=== PATIENT | male | born 1980 | race Caucasian/White ===

== ENCOUNTER 2017-01-18 06:52 | Day surgery (SDC) | payer OTHER ==
[2017-01-18 07:21] VITALS: BMI 31.6
[2017-01-18] MEDS ORDERED: Lactated Ringer's 500 ML IV ONE (08:48)
--- NOTE | 2017-01-18 08:53 | CP.SDSHP ---
Same Day Surgery H & P - History Proposed Procedure: egd Pre-Op Diagnosis: epigastric pain. heartburn - Previous Medical/Surgical History Neuro: Backaches Misc: Other (gastritis, ) Previous Surgical History: Back surgery (?) - Allergies Allergies: Allergies No Known Allergies Allergy (Verified 01/18/17 07:18) - Physical Exam Vital Signs: Vital Signs 01/18/17 07:21 Temperature 97.1 F L Pulse Rate 70 Respiratory 18 Rate Blood Pressure 139/90 O2 Sat by Pulse 98 Oximetry Mental Status: Alert & Oriented x3 Neuro: WNL Heart: WNL Lungs: WNL GI: WNL - Impression Impression: heartburn. epigastric pain Pt. Evaluated Today:Candidate for Anesthesia & Procedure: Yes - Date & Time Date: 01/18/17 Time: 08:52 Short Stay Discharge - Short Stay Discharge Admitting Diagnosis/Reason for Visit: EPIGASTRIC PAIN Disposition: HOME/ ROUTINE
[2017-01-18 08:58] VITALS: O2SAT 100
[2017-01-18] MEDS ORDERED: Pantoprazole 40 mg EC Tab PO ONE (09:15)
[2017-01-18 09:26] VITALS: TEMP 98.9
[2017-01-18 10:13] VITALS: BP 116/72; PULSE 77; RESP 15
== END 2017-01-18 10:10 | disposition home or self-care (01) ==
LOC: C.ENDO 06:52
PROVIDERS: ATTEND Internal Medicine Gastroenterology
DX: K29.70 Gastritis, unspecified, without bleeding (principal); R10.13 Epigastric pain
CPT/HCPCS: 43239; 88305; 88312; 88313; 88342; J7120